=== PATIENT | male | born 1935 | race Caucasian/White ===

== ENCOUNTER 2024-09-26 12:49 | Inpatient (IN) ==
[2024-09-26 13:52] LABS: Hematocrit (blood only) 39.7 % (42.0-52.0); Hemoglobin 14.5 g/dl (14.0-18.0); Immature Granulocytes # (auto) 0.04 K/uL (0.01-0.20); Immature Granulocytes % (auto) 0.4 %; Mean Corpuscular Hemoglobin 32.2 pg (25.0-34.0); Mean Corpuscular Volume 88.2 fL (80.0-100.0); Platelet Count 248 K/uL (130-400); RDW Standard Deviation 39.3 fL (36.4-46.3); Red Blood Count 4.50 M/uL (4.70-6.10); White Blood Count 10.20 K/ul (4.8-10.8)
[2024-09-26 14:14] LABS: Alanine Aminotransferase 21 U/L (7-52); Albumin Globulin Ratio 1.3 (0.9-2); Alkaline Phosphatase 128 U/L (34-104); Anion Gap 8 (3-11); Bilirubin,Total 0.9 mg/dl (0.2-1.0); Blood Urea Nitrogen 33 mg/dl (6-23); Calcium 10.1 mg/dl (8.6-10.3); Carbon Dioxide 27 mmol/L (21-32); Chloride 93 mmol/L (98-107); Globulin 3.2 gm/dl (2.5-4.0); Glucose 477 mg/dl (70-99(Fasting)); Magnesium 1.5 mg/dl (1.7-2.4); Potassium 4.6 mmol/L (3.5-5.1); Sodium 128 mmol/L (136-145); Total Protein 7.3 gm/dl (6.0-8.3)
[2024-09-26 14:18] LABS: INR 1.0 (0.9-1.1); Prothrombin Time 10.5 Seconds (9.0-12.0)
[2024-09-26 14:26] LABS: Thyroid Stimulating Hormone 4.185 uIu/ml (0.300-4.500)
[2024-09-26 16:06] LABS: Base Excess VBG 1.0 mEq/L; HCO3 VBG 28 mmol/L; Oxygen Saturation VBG < 60.0 %; PCO2 VBG 53 mmHg (38-50); PO2 VBG < 20 mmHg; pH VBG 7.33 (7.36-7.41)
--- NOTE | 2024-09-26 16:08 | Emergency Department Note ---
Impression & Plan Recurrent falls, Rhabdomyolysis, Hyperglycemia due to type 2 diabetes mellitus, Elevated CK, Generalized weakness, Elevated serum creatinine, Elevated troponin, Ambulatory dysfunction ED Provider Note HISTORY OF PRESENT ILLNESS: Patient is an 89-year-old male presenting with generalized weakness. History is obtained from grandchildren. Patient's primary braider setter who is his child is currently on vacation and grandchildren came to check on the patient and his . Granddaughter reports that the patient was found on the ground today. Patient reports that he fell sometime this afternoon. He states that he keeps falling secondary to his legs giving out and him being so weak. He states he normally ambulates with a walker at baseline. He denies striking his head or loss of consciousness. He reported to his granddaughter that he has had occasional episodes of feeling lightheaded and dizzy prior to his falls. He denies any chest pain. Denies any nausea or vomiting. Denies any abdominal pain. He currently is complaining that "my tailbone hurts." Denies any numbness or tingling down his legs. ROS: as above PHYSICAL EXAM: Constitutional: Patient appears in no acute distress. HENT: Head: Normocephalic and atraumatic. Eyes: EOMI, PERRL Mouth/Throat: Mucous membranes moist. Neck: Trachea midline. Neck supple. No midline cervical spine tenderness to palpation. Cardiovascular: RRR, No murmurs, rubs or gallops. Intact distal pulses. Pulmonary/Chest: No respiratory distress. Breath sounds clear and equal bilaterally. No wheezes or rales Abdominal: Abdomen soft, no tenderness, rebound or guarding. Back: No midline spinal tenderness, no paraspinal tenderness, no CVA tenderness. Patient is able to straight leg raise bilaterally. Musculoskeletal: No edema, tenderness or deformity noted. Skin: Warm and dry. No rash, erythema, pallor or cyanosis Psychiatric: Appropriate mood and affect for situation. Neurological: Alert and keenly responsive. CN II-XII grossly intact, moving all extremities equally and fully. MDM: - Vitals signs showed hypertension and bradycardia. - History obtained via patient. History as above. - Chronic conditions affecting care: DM-2; CVA; HTN; CAD (s/p CABG); GERD - Differential diagnoses include, but are not limited to: Intracranial hemorrhage; CVA; UTI; deconditioning; pneumonia; viral syndrome; electrolyte abnormality; hypoglycemia - Order placed for continuous cardiac monitoring. At this time, monitor showed rate of 65 bpm with normal sinus rhythm, per my interpretation. - External medical records reviewed. - EKG image interpreted by myself showed normal sinus rhythm. Rate 63 bpm. QT 446. Noted to have a right bundle branch block. Noted to have some T wave inversions in leads I, aVL and lateral leads. - Laboratory workup interpreted by myself showed normal WBC; normal PT/INR; acute hyponatremia (Na 128 - likely pseudohyponatremia in setting of hyperglycemia); MARU (Cr 2.07); hypomagnesemia (Mg 1.5); elevated CK (584); elevated troponin (43.4); normal TSH - VBG showed slight acidosis (pH 7.33) - Xray of sacrum and coccyx negative for fracture - CT head wo contrast negative for acute intracranial pathology - UA ordered - Patient given 1L NS - Discussion was had with case finishing machine adjuster about patient's case and need for admission - Hospitalist consulted for admission - [facility] ASSESSMENT AND PLAN: Diagnosis: recurrent falls; hyperglycemia due to type 2 diabetes; rhabdomyolysis; elevated CK; elevated creatinine; elevated troponin; generalized weakness; ambulatory dysfunction Plan: admit Past Med/Surg History Problem List (Updated 09/26/24 @ 19:08 by Ally De La Garza MD) Ambulatory dysfunction (Acute) Elevated troponin (Acute) Elevated serum creatinine (Acute) Generalized weakness (Acute) Elevated CK (Acute) Electrolyte abnormality Hyperglycemia due to type 2 diabetes mellitus (Acute) Rhabdomyolysis (Acute) Recurrent falls (Acute) Medical History (Updated 09/26/24 @ 19:08 by Ally De La Garza MD) GERD (gastroesophageal reflux disease) Hypertension DM2 (diabetes mellitus, type 2) Acute CVA (cerebrovascular accident) Surgical History (Updated 09/26/24 @ 19:08 by Ally De La Garza MD) S/P CABG (coronary artery bypass graft) Social History Smoking Status: Former smoker Feels Safe at Home: Yes Allergies Allergies Allergy/AdvReac Type Severity Reaction Status Date / Time No Known Allergies Allergy Unverified 09/26/24 17:50 Home Meds Home Medications Medication Instructions Recorded Confirmed atenolol 25 mg tablet 25 mg PO DAILY 09/26/24 09/26/24 atorvastatin 80 mg tablet 80 mg PO HS 09/26/24 09/26/24 clopidogrel 75 mg tablet 75 mg PO DAILY 09/26/24 09/26/24 colesevelam 625 mg tablet 625 mg PO BID 09/26/24 09/26/24 ergocalciferol (vitamin D2) 1,250 1,250 mcg PO WK 09/26/24 09/26/24 mcg (50,000 unit) capsule (Vitamin D2) famotidine 20 mg tablet 20 mg PO BID 09/26/24 09/26/24 glipizide 5 mg tablet 2.5 mg PO BID 09/26/24 09/26/24 metformin 500 mg tablet 500 mg PO QID 09/26/24 09/26/24 omega-3s 300 hh-ovz-[id number]-other 1 cap PO DAILY 09/26/24 09/26/24 [id number] oil 1,000 mg capsule ([place]-3 Fish Oil) pantoprazole 40 mg tablet,delayed 40 mg PO DAILY PRN Heartburn 09/26/24 09/26/24 release semaglutide 14 mg tablet (Rybelsus) 14 mg PO DAILY 09/26/24 09/26/24 Results & Data (ED) Vital Signs Vital Signs - 24 hr 09/26/24 13:02 09/26/24 16:26 09/26/24 18:00 Temperature 36.1 C L Temperature Source Oral Pulse Rate 59 L Pulse Rate [Apical] 65 Respiratory Rate 19 16 16 Respiratory Effort / Characteristics Non-Labored Spontaneous Respiratory Depth Normal Blood Pressure 142/80 H Blood Pressure [Right Arm] 140/73 Blood Pressure Mean 100 Blood Pressure Mean [Right Arm] 95 Pulse Oximetry 91 97 92 Oxygen Delivery Method Room Air Room Air Nasal Cannula Sepsis Recent Fever Within 48 Hours No Sepsis New/Unexplained Change in Mental Status No Sepsis Action Taken by Nursing No Action Required Laboratory Data 09/26/24 13:23 09/26/24 13:23 Lab Results 09/26/24 09/26/24 09/26/24 Range/Units 13:23 15:54 18:22 WBC 10.20 (4.8-10.8) K/ul RBC 4.50 L (4.70-6.10) M/uL Hgb 14.5 (14.0-18.0) g/dl Hct 39.7 L (42.0-52.0) % MCV 88.2 (80.0-100.0) fL MCH 32.2 (25.0-34.0) pg MCHC 36.5 H (32.0-36.0) g/dL RDW Std Deviation 39.3 (36.4-46.3) fL RDW Coeff of Yahaira 12.3 (11.5-14.5) % Plt Count 248 (130-400) K/uL MPV 11.0 (9.4-12.4) fL Immature Gran % (Auto) 0.4 % Neut % (Auto) 68.9 % Lymph % (Auto) 20.4 % [place]morton % (Auto) 7.2 % Eos % (Auto) 2.5 % Baso % (Auto) 0.6 % Neut # (Auto) 7.04 H (1.40-6.50) K/uL Lymph # (Auto) 2.08 (1.20-3.40) K/uL [place]on # (Auto) 0.73 H (0.11-0.59) K/uL Eos # (Auto) 0.25 (0.00-0.50) K/uL Baso # (Auto) 0.06 (0.00-0.20) K/uL Immature Gran # (Auto) 0.04 (0.01-0.20) K/uL PT 10.5 (9.0-12.0) Seconds INR 1.0 (0.9-1.1) VBG pH 7.33 L (7.36-7.41) VBG pCO2 53 H (38-50) mmHg VBG pO2 < 20 mmHg VBG HCO3 28 mmol/L VBG O2 Saturation < 60.0 % VBG Base Excess 1.0 mEq/L Sodium 128 L (136-145) mmol/L Potassium 4.6 (3.5-5.1) mmol/L Chloride 93 L (98-107) mmol/L Carbon Dioxide 27 (21-32) mmol/L Anion Gap 8 (3-11) BUN 33 H (6-23) mg/dl Creatinine 2.07 H (0.6-1.4) mg/dl Est Cr Clr Drug Dosing Not Reportable eGFR 30.24 BUN/Creatinine Ratio 15.9 (10-20) Glucose 477 H* (70-99(Fasting)) mg/dl POC Glucose 274 H (70-99) mg/dl Calcium 10.1 (8.6-10.3) mg/dl Magnesium 1.5 L (1.7-2.4) mg/dl Total Bilirubin 0.9 (0.2-1.0) mg/dl AST 37 (13-39) U/L ALT 21 (7-52) U/L Alkaline Phosphatase 128 H (34-104) U/L Total Creatine Kinase 584 H (30-223) U/L Troponin I High Sens 43.4 H 40.7 H (0-20) pg/ml Total Protein 7.3 (6.0-8.3) gm/dl Albumin 4.1 (3.4-5.0) gm/dl Globulin 3.2 (2.5-4.0) gm/dl Albumin/Globulin Ratio 1.3 (0.9-2) TSH 4.185 (0.300-4.500) uIu/ml Administered Medications Discontinued Medications Sodium Chloride (Nss) 1,000 mls @ 999 mls/hr IV .Q1H1M ONE Stop: 09/26/24 17:27 Last Admin: 09/26/24 16:59 Dose: 999 mls/hr Documented By: SHARA Imaging Data Radiologist's Impression: Head CT 09/26/24 15:00 Clinical History: Dizziness Technique: Axial computed tomography images were obtained of the brain without intravenous contrast. Findings: There is diffuse cerebral atrophy, within expected limits for the patient's age. Areas of decreased attenuation are seen within the periventricular white matter, likely representing chronic small vessel ischemic disease. There is an old infarct of the right caudate nucleus. There is no definite sign of acute infarction. No intracranial hemorrhage is evident. No definite mass lesion is seen on this noncontrast examination. There is no midline shift or other form of herniation. No hydrocephalus is seen. No fracture is identified. The orbits and the visualized paranasal sinuses appear unremarkable. The mastoid air cells appear clear. Impression: 1. Cerebral atrophy, old basal ganglia infarct, and chronic small vessel ischemic disease 2. No definite acute pathology Electronically signed by Samuel Calix 09-26-2024 5:17 PM Sacrum and Coccyx X-Ray 09/26/24 16:00 Clinical History: Pain after fall 3 views of the sacrum and coccyx are submitted for review. Findings: No fracture or dislocation is seen. No significant arthritic changes are noted. No other osseous abnormality is identified. There are no radiopaque foreign bodies. Impression: Unremarkable radiographs of the sacrum and coccyx Electronically signed by Samuel Calix 09-26-2024 5:16 PM Discharge Plan Visit Data Chief Complaint: Fall Stated Complaint: MULTIPLE FALLS, CONFUSION ED Provider: Ally De La Garza Discharge Problem: Recurrent falls, Rhabdomyolysis, Hyperglycemia due to type 2 diabetes mellitus, Elevated CK, Generalized weakness, Elevated serum creatinine, Elevated troponin, Ambulatory dysfunction Condition: Fair Forms Stand Alone Forms: My [facility] [employer] Prescriptions Prescriptions: No Action atenolol 25 mg tablet 25 mg PO DAILY famotidine 20 mg tablet 20 mg PO BID glipizide 5 mg tablet 2.5 mg PO BID Rybelsus 14 mg tablet 14 mg PO DAILY atorvastatin 80 mg tablet 80 mg PO HS clopidogrel 75 mg tablet 75 mg PO DAILY pantoprazole 40 mg tablet,delayed release (DR/EC) 40 mg PO DAILY PRN (Reason: Heartburn) ergocalciferol (vitamin D2) [Vitamin D2] 1,250 mcg (50,000 unit) capsule 1,250 mcg PO WK metformin 500 mg tablet 500 mg PO QID colesevelam 625 mg Tablet 625 mg PO BID [place]-3 Fish Oil 300-1,000 mg Capsule 1 cap PO DAILY Referrals Referrals: Edvin Frost [Primary Care Provider] -
[2024-09-26 16:34] LABS: Creatine Kinase 584 U/L (30-223)
--- NOTE | 2024-09-26 16:40 | History & Physical Report ---
Date of Service September 26, 2024 Assessment & Plan (1) Recurrent falls: (2) Rhabdomyolysis: (3) Hyperglycemia due to type 2 diabetes mellitus: (4) Electrolyte abnormality: Ling Vanessa is a pleasant 89-year-old man with past medical history of stroke in 2023, hypertension, open heart surgery in 2000, GERD, vitamin D deficiency. He was found down on the ground by his grandson and reportedly has had multiple ground- level falls the past few days due to "weak legs giving out." No head strike, LOC, injuries. He was admitted for PT/OT evaluations, correction of his acute hyperglycemia, and repletion of electrolyte abnormalities. #Recurrent falls | Mild rhabdo - falls sound biomechanical in nature/secondary to generalized weakness. Mild rhabdo likely secondary to being on the ground for unknown period of time but suspect at least a few hours - CK elevated at 584. UA pending. No myalgias, tachycardia, GI symptoms, fever, malaise - PT/OT consulted - Fall precautions - S/p 1 L NSS bolus. Continue with NSS at maintenance rate of 115 cc/hr x 1 bag #Acute hyperglycemia | T2DM - blood sugar on arrival 447. Outpatient regimen of metformin 500 mg 4 times daily, glipizide 2.5 mg twice daily, and Rybelsus 14 mg daily. He ran out of his Rybelsus prescription and did not take it for a few days [employer] - S/p 1 NSS bolus with repeat POC BS 274 - Insulin basal/bolus with Lantus 10 u BID, CF 30, CR 10 - A1c added to AM labs #Electrolyte abnormality - Mild hypomagnesemia with mag 1.5 - BMP sodium 128 but corrected sodium for hyperglycemia WNL at 137 - Replete with 1 g IV mag - Repeat BMP, mag with AM labs #Renal insufficiency unknown baseline creatinine. BUN/creatinine 33/2.07 respectively, consistent with dehydration - Continue IV fluids as above. Anticipate will improve with fluids. - Trend BMP with a.m. labs #History of stroke, ontinue Plavix 75 mg daily, aspirin 81 mg daily, atorvastatin 80 mg daily #Hypertensioncontinue atenolol 25 mg daily #GERDcontinue Protonix 40 mg daily, Pepcid 20 mg daily VTE PPx: Heparin Dispo: med/surg. If possible to room with , that would be preferred. Family updated at bedside on admission History of Present Illness Chief Complaint: Fall, generalized weakness Primary Care Provider: Edvin Vanessa is a pleasant 89-year-old man with past medical history of stroke in 2023, open heart surgery in 2000, GERD, vitamin D deficiency. He presented from home with repeated falls and generalized weakness. At the time of my exam, the patient was lying in bed in no acute distress. Obtained most of the history via his grandchildren who are present at bedside. Khang states his mother is the primary caregiver for Otf and his who is in the other bed in the ED room. Patient's daughter is currently on vacation and neighbors have been checking on Otf and his intermittently. Khang was notified yesterday that Otf had a couple falls. Khang and his traveled from [place] to [place] today to check on Otf. When they arrived to their home, they found the patient on the ground. Otf denies any injuries from his falls. Denies head strike or loss of consciousness. He reports "my legs are weak and gave out. I only landed on my butt." Otf does use a walker at baseline. Khang reports that Otf ran out of his Rybelsus medication a few days ago. They picked up this prescription today and he took his dose. Otherwise, khang reports his pill packs showed that he has been taking his other medications appropriately. Patient agrees that he is taking his medications as prescribed. Vitals on admission are stable. Labs on admission are significant for sodium 128 (corrected to 137), BUN/creatinine 33/2.07, glucose 477, mag 1.5, CK 584, troponin 43.4 down trended to 40.7. No leukocytosis, no anemia, TSH WNL. Head CT on admission reveals cerebral atrophy, old basal ganglia infarct, chronic small vessel ischemic disease but no definite acute pathology. Sacrum and coccyx x-ray with no fracture, dislocation, or other osseous abnormalities. We discussed code status, patient wishes to be a full code. Allergies Allergy/AdvReac Type Severity Reaction Status Date / Time No Known Allergies Allergy Unverified 09/26/24 17:50 Home Medications Medication Instructions Recorded Confirmed Type atenolol 25 mg tablet 25 mg PO DAILY 09/26/24 09/26/24 History atorvastatin 80 mg tablet 80 mg PO HS 09/26/24 09/26/24 History clopidogrel 75 mg tablet 75 mg PO DAILY 09/26/24 09/26/24 History colesevelam 625 mg tablet 625 mg PO BID 09/26/24 09/26/24 History ergocalciferol (vitamin D2) 1,250 1,250 mcg PO WK 09/26/24 09/26/24 History mcg (50,000 unit) capsule (Vitamin D2) famotidine 20 mg tablet 20 mg PO BID 09/26/24 09/26/24 History glipizide 5 mg tablet 2.5 mg PO BID 09/26/24 09/26/24 History metformin 500 mg tablet 500 mg PO QID 09/26/24 09/26/24 History omega-3s 300 zr-uba-bim-other 1 cap PO DAILY 09/26/24 09/26/24 History [id number]-[id number] oil 1,000 mg capsule ([place]-3 Fish Oil) pantoprazole 40 mg tablet,delayed 40 mg PO DAILY PRN Heartburn 09/26/24 09/26/24 History release semaglutide 14 mg tablet (Rybelsus) 14 mg PO DAILY 09/26/24 09/26/24 History Past Med/Surg History Problem List (Updated 09/26/24 @ 19:08 by Ally De La Garza MD) Ambulatory dysfunction (Acute) Elevated troponin (Acute) Elevated serum creatinine (Acute) Generalized weakness (Acute) Elevated CK (Acute) Electrolyte abnormality Hyperglycemia due to type 2 diabetes mellitus (Acute) Rhabdomyolysis (Acute) Recurrent falls (Acute) Medical History (Updated 09/26/24 @ 19:08 by Ally De La Garza MD) GERD (gastroesophageal reflux disease) Hypertension DM2 (diabetes mellitus, type 2) Acute CVA (cerebrovascular accident) Surgical History (Updated 09/26/24 @ 19:08 by Ally De La Garza MD) S/P CABG (coronary artery bypass graft) Social History Smoking Status: Former smoker Feels Safe at Home: Yes Review of Systems Review of Systems: All systems reviewed & are unremarkable except as noted in HPI & below Physical Exam Physical Exam: General: No acute distress, nondiaphoretic, well-developed, well-nourished. HEENT: Dry mucous membranes. PERRLA. Skin: Warm, dry. No rashes or peripheral edema noted. Cardiac: Regular rate and rhythm without murmurs gallops or rubs. Pulm: Clear to auscultation bilaterally without wheezes, rales or rhonchi. Normal respiratory effort. 97% on room air. Abdominal: Soft, nontender, nondistended. No masses or organomegaly. No guarding or rebound tenderness. Bowel sounds present. Neuro: A&O x3. No focal neurological deficits. Results & Data Results & Data Vital Signs (Past 12 Hours) Vital Signs Temp Pulse Resp BP BP Pulse Ox O2 Del Method 09/26/24 16:26 16 140/73 97 Room Air 09/26/24 13:02 97.0 F L 59 L 19 142/80 H 91 Room Air Laboratory Results Reviewed CBC with differential Reviewed coags Reviewed VBG Reviewed CMP, chemistries Diagnostic Findings Reviewed head CT Reviewed sacrum and coccyx x-ray Reviewed EKG Head CT 09/26/24 15:00 Clinical History: Dizziness Technique: Axial computed tomography images were obtained of the brain without intravenous contrast. Findings: There is diffuse cerebral atrophy, within expected limits for the patient's age. Areas of decreased attenuation are seen within the periventricular white matter, likely representing chronic small vessel ischemic disease. There is an old infarct of the right caudate nucleus. There is no definite sign of acute infarction. No intracranial hemorrhage is evident. No definite mass lesion is seen on this noncontrast examination. There is no midline shift or other form of herniation. No hydrocephalus is seen. No fracture is identified. The orbits and the visualized paranasal sinuses appear unremarkable. The mastoid air cells appear clear. Impression: 1. Cerebral atrophy, old basal ganglia infarct, and chronic small vessel ischemic disease 2. No definite acute pathology Electronically signed by Samuel Calix 09-26-2024 5:17 PM Sacrum and Coccyx X-Ray 09/26/24 16:00 Clinical History: Pain after fall 3 views of the sacrum and coccyx are submitted for review. Findings: No fracture or dislocation is seen. No significant arthritic changes are noted. No other osseous abnormality is identified. There are no radiopaque foreign bodies. Impression: Unremarkable radiographs of the sacrum and coccyx Electronically signed by Samuel Calix 09-26-2024 5:16 PM Supervising Physician Co-Signing Physician Notes Patient seen and examined, chart reviewed, case discussed with Maryann Bui PA-C and I agree with the assessment and plan as above except as otherwise noted Labs and images reviewed 89-year-old male presents with hyperglycemia, volume contraction, recurrent falls, rhabdo, and weakness. Suspected due to volume contraction. BSG rapidly improving following fluids. Follow renal function daily. No head strike/loss of consciousness. Reports he is so tired and weak that he fell to the floor and hit his butt, did not hit his head. No focal weakness. CThead without acute findings. PT/OT pending. Agree with above PG Care Time/CCT Total # of Minutes Spent Total Time Spent with Patient: Total time spent is greater than 50% in coordination of care (as documented) at patient's floor/unit and/or counseling patient: Coding Level of Care Code 70435 INT INP/OBS CARE 3/75MIN Diagnoses Recurrent falls R29.6 Rhabdomyolysis M62.82 Hyperglycemia due to type 2 diabetes mellitus E11.65 Electrolyte abnormality E87.8
[2024-09-26] MEDS: SODIUM CHLORIDE 0.9% 1,000 ML IV ONE (16:59)
--- NOTE | 2024-09-26 17:16 | XRay Report ---
Clinical History: Pain after fall 3 views of the sacrum and coccyx are submitted for review. Findings: No fracture or dislocation is seen. No significant arthritic changes are noted. No other osseous abnormality is identified. There are no radiopaque foreign bodies. Impression: Unremarkable radiographs of the sacrum and coccyx Electronically signed by Samuel Calix 09-26-2024 5:16 PM
--- NOTE | 2024-09-26 17:17 | CT Scan Report ---
Clinical History: Dizziness Technique: Axial computed tomography images were obtained of the brain without intravenous contrast. Findings: There is diffuse cerebral atrophy, within expected limits for the patient's age. Areas of decreased attenuation are seen within the periventricular white matter, likely representing chronic small vessel ischemic disease. There is an old infarct of the right caudate nucleus. There is no definite sign of acute infarction. No intracranial hemorrhage is evident. No definite mass lesion is seen on this noncontrast examination. There is no midline shift or other form of herniation. No hydrocephalus is seen. No fracture is identified. The orbits and the visualized paranasal sinuses appear unremarkable. The mastoid air cells appear clear. Impression: 1. Cerebral atrophy, old basal ganglia infarct, and chronic small vessel ischemic disease 2. No definite acute pathology Electronically signed by Samuel Calix 09-26-2024 5:17 PM
[2024-09-26] MEDS ORDERED: GLUCAGON FOR INJ 1 MG VIAL SQ PRN (18:27)
[2024-09-26] MEDS ORDERED: DEXTROSE 50% 50 ML SYRINGE IV PRN (18:27)
[2024-09-26] MEDS ORDERED: GLUCOSE 40% GEL 15 GM TUBE PO PRN (18:27)
[2024-09-26] MEDS ORDERED: GLUCOSE 10 TAB/TUBE PO PRN (18:27)
[2024-09-26] MEDS: SODIUM CHLORIDE 0.9% 1,000 ML IV SCH (19:30)
[2024-09-26] MEDS ORDERED: MELATONIN 3 MG TAB PO PRN (19:52)
[2024-09-26] MEDS: INSULIN ASPART PER UNIT CHARGE SC SCH (20:26)
[2024-09-26] MEDS: MAGNESIUM SULFATE / D5W 1 GM/100 ML BAG IV ONE (20:28)
[2024-09-26 21:53] LABS: Appearance Urine Clear (Clear); Bacteria Urine Automated None Seen (None Seen); Cast Urine Automated 0-2 /lpf (0-2); Epithelial Cell Urine Auto 0-2 /hpf (0-2); Glucose Urine UA 3+ (Negative); RBC Urine Automated 0-2 /hpf (0-2); WBC Urine Automated 21-50 /hpf (0-5)
[2024-09-26] MEDS: LANTUS PER UNIT CHARGE SQ SCH (22:06)
[2024-09-27 06:31] LABS: Hematocrit (blood only) 36.9 % (42.0-52.0); Hemoglobin 13.2 g/dl (14.0-18.0); Mean Corpuscular Hemoglobin 31.8 pg (25.0-34.0); Mean Corpuscular Volume 88.9 fL (80.0-100.0); Platelet Count 221 K/uL (130-400); RDW Standard Deviation 39.8 fL (36.4-46.3); Red Blood Count 4.15 M/uL (4.70-6.10); White Blood Count 9.18 K/ul (4.8-10.8)
[2024-09-27 07:01] LABS: Alanine Aminotransferase 16.0 U/L (7-52); Albumin Globulin Ratio 1.5 (0.9-2); Alkaline Phosphatase 85.0 U/L (34-104); Anion Gap 7.0 (3-11); Bilirubin,Total 0.7 mg/dl (0.2-1.0); Blood Urea Nitrogen 26.0 mg/dl (6-23); Calcium 9.0 mg/dl (8.6-10.3); Carbon Dioxide 27.0 mmol/L (21-32); Chloride 104.0 mmol/L (98-107); Creatinine Clr Calc Pharmacy 29.1 ml/min; Globulin 2.4 gm/dl (2.5-4.0); Glucose 117.0 mg/dl (70-99(Fasting)); Magnesium 1.5 mg/dl (1.7-2.4); Potassium 4.4 mmol/L (3.5-5.1); Sodium 138.0 mmol/L (136-145); Total Protein 5.9 gm/dl (6.0-8.3)
[2024-09-27 07:51] LABS: Hemoglobin A1C 13.4 % (4.5-5.6)
[2024-09-27] MEDS: HEPARIN SOD 5,000 UNIT/0.5 ML VIAL SQ SCH (08:52)
[2024-09-27] MEDS: ATORVASTATIN 40 MG TAB PO SCH (08:54)
[2024-09-27] MEDS: CLOPIDOGREL BISULFATE 75 MG TAB PO SCH (08:54)
[2024-09-27] MEDS: ATENOLOL 25 MG TABLET PO SCH (08:54)
[2024-09-27] MEDS: ASPIRIN 81 MG ECTAB PO SCH (08:54)
[2024-09-27] MEDS: CHOLECALCIFEROL 125 MCG (5,000 UNITS) TAB PO SCH (08:54)
[2024-09-27] MEDS: FAMOTIDINE 20 MG TAB PO SCH (09:01)
[2024-09-27 10:25] LABS: Creatine Kinase 259.0 U/L (30-223)
[2024-09-27] MEDS: ALUMINUM/MAGNESIUM SUSP 30 ML UDC PO PRN (11:20)
[2024-09-27] MEDS: CALCIUM CARBONATE 500 MG CHEWABLE TAB PO PRN (12:29)
--- NOTE | 2024-09-27 16:20 | Hospitalist Progress Note ---
Date of Service September 27, 2024 Assessment & Plan (1) Recurrent falls: (2) Rhabdomyolysis: (3) Hyperglycemia due to type 2 diabetes mellitus: (4) Electrolyte abnormality: Ling Vansesa is a pleasant 89-year-old man with past medical history of stroke in 2023, hypertension, open heart surgery in 2000, GERD, vitamin D deficiency. He was found down on the ground by his grandson and reportedly has had multiple ground- level falls the past few days due to "weak legs giving out." No head strike, LOC, injuries. He was admitted for PT/OT evaluations, correction of his acute hyperglycemia, and repletion of electrolyte abnormalities. #Recurrent falls | Mild rhabdo - falls sound biomechanical in nature/secondary to generalized weakness. Mild rhabdo likely secondary to being on the ground for unknown period of time but suspect at least a few hours - CK elevated at 584, down trended to 259. UA negative. No myalgias, tachycardia, GI symptoms, fever, malaise - PT/OT consulted - Fall precautions - S/p 2 L NSS IV fluid #Acute hyperglycemia | T2DM - blood sugar on arrival 447. Outpatient regimen of metformin 500 mg 4 times daily, glipizide 2.5 mg twice daily, and Rybelsus 14 mg daily. 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 Blood sugar on the labs today 09/27 much improved at 117 - Insulin basal/bolus with Lantus 10 u BID, CF 30, CR 10 - A1c significantly elevated at 13.4%. Will monitor insulin requirements here, but anticipate discharging on home regimen + 3-5 units basal insulin and establishing care with endocrinology within 2 weeks. Will provide education with family about 3 times daily blood sugar checks and glucagon pen for hypoglycemia emergencies #Electrolyte abnormality - Mild hypomagnesemia with mag 1.5, repleted with 1 g IV mag on admission. Mag remains mildly low at 1.5, will replete with additional 1 g IV mag - Repeat BMP, mag with AM labs #Renal insufficiency unknown baseline creatinine. BUN/creatinine 33/2.07 respectively, consistent with dehydration - S/p 2 L NSS IV fluid. Improvement in BUN/creatinine to 26/1.64 respectively - Trend BMP with a.m. labs #History of stroke, ontinue Plavix 75 mg daily, aspirin 81 mg daily, atorvastatin 80 mg daily #Hypertensioncontinue atenolol 25 mg daily #GERDcontinue Protonix 40 mg daily, Pepcid 20 mg daily VTE PPx: Heparin Dispo: Pending PT/OT evaluations but would anticipate rehab placement Family updated at bedside Repleted magnesium Admission and Anticipated Discharge Date Admission Date: September 26, 2024 Subjective Patient seen and evaluated bedside. He is happy because he was able to visit with his downstairs earlier after lunch. He denies any acute complaints or concerns at this time. We had a brief discussion regarding his diabetic care/regimen. I met with his grandson and his as well as the patient's to provide them all an update. We had a thorough discussion regarding his A1c and necessary changes to his diabetic regimen. All questions/concerns were addressed. No additional complaints or concerns at this time Physical Exam Physical Exam: General: No acute distress, nondiaphoretic, well-developed, well-nourished. Skin: Warm, dry. No rashes or peripheral edema noted. Cardiac: Regular rate and rhythm without murmurs gallops or rubs. Pulm: Clear to auscultation bilaterally without wheezes, rales or rhonchi. Normal respiratory effort. 98% on room air. Abdominal: Soft, nontender, nondistended. No masses or organomegaly. No guarding or rebound tenderness. Bowel sounds present. Neuro: A&O x3. No focal neurological deficits. Results & Data Results & Data Vital Signs (Past 12 Hours) Vital Signs Temp Pulse Pulse Resp BP Pulse Ox O2 Del Method 09/27/24 15:11 97.2 F L 76 18 147/64 H 98 Room Air 09/27/24 11:13 97.9 F 69 18 117/70 96 Room Air 09/27/24 07:31 97.5 F L 68 18 149/79 H 96 Room Air Laboratory Results Reviewed CBC Reviewed CMP Reviewed UA PG Care Time/CCT Total # of Minutes Spent Total Time Spent with Patient: Total time spent is greater than 50% in coordination of care (as documented) at patient's floor/unit and/or counseling patient: Coding Level of Care Code 94779 SUB INP/OBS CARE 3/50MIN Diagnoses Recurrent falls R29.6 Rhabdomyolysis M62.82 Hyperglycemia due to type 2 diabetes mellitus E11.65 Electrolyte abnormality E87.8
[2024-09-27] MEDS: MAGNESIUM SULFATE / D5W 1 GM/100 ML BAG IV ONE (16:55)
--- NOTE | 2024-09-28 05:52 | Electrocardiogram Report ---
Test Reason : Blood Pressure : */* mmHG Vent. Rate : 63 BPM Atrial Rate : 63 BPM P-R Int : 136 ms QRS Dur : 124 ms QT Int : 446 ms P-R-T Axes : 3 30 104 degrees QTcB Int : 456 ms Normal sinus rhythm Right bundle branch block T wave abnormality, consider lateral ischemia Abnormal ECG No previous ECGs available Confirmed by Ruy Contreras ([id number]) on 09/28/2024 5:51:35 AM Referred By: Confirmed By: Ruy Contreras
[2024-09-28] MEDS: CARBOHYDRATES FOR HYPOGLYCEMIA PO PRN (07:49)
[2024-09-28 08:04] LABS: Anion Gap 4.0 (3-11); Blood Urea Nitrogen 21.0 mg/dl (6-23); Calcium 8.3 mg/dl (8.6-10.3); Carbon Dioxide 26.0 mmol/L (21-32); Chloride 109.0 mmol/L (98-107); Creatinine Clr Calc Pharmacy 30.4 ml/min; Glucose 65.0 mg/dl (70-99(Fasting)); Potassium 4.2 mmol/L (3.5-5.1); Sodium 139.0 mmol/L (136-145)
[2024-09-28] MEDS: COUGH DROP (SUGAR FREE) LOZ 24 LOZ/1 BOX BUCCAL PRN (08:10)
--- NOTE | 2024-09-28 10:46 | Hospitalist Progress Note ---
Date of Service September 28, 2024 Assessment & Plan (1) Recurrent falls: (2) Rhabdomyolysis: (3) Hyperglycemia due to type 2 diabetes mellitus: (4) Electrolyte abnormality: Ling Vanessa is a pleasant 89-year-old man with past medical history of stroke in 2023, hypertension, open heart surgery in 2000, GERD, vitamin D deficiency. He was found down on the ground by his grandson and reportedly has had multiple ground- level falls the past few days due to "weak legs giving out." No head strike, LOC, injuries. He was admitted for PT/OT evaluations, correction of his acute hyperglycemia, and repletion of electrolyte abnormalities. #Recurrent falls | Mild rhabdo - falls sound biomechanical in nature/secondary to generalized weakness. Mild rhabdo likely secondary to being on the ground for unknown period of time but suspect at least a few hours. S/p 2 L NSS IV fluid, no further IV fluids needed - CK elevated at 584, down trended to 259. UA negative. No myalgias, tachycardia, GI symptoms, fever, malaise - PT/OT consulted - Fall precautions - Continue to encourage oral fluids #Acute hyperglycemia | T2DM - blood sugar on arrival 447. Outpatient regimen of metformin 500 mg 4 times daily, glipizide 2.5 mg twice daily, and Rybelsus 14 mg daily. 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 S/p 1 NSS bolus with repeat POC BS 274 on admission - Episodes of hypoglycemia this morning and again this afternoon 09/28. Likely quite sensitive to insulin adjustments especially because he was not taking his metformin as prescribed (supposed to take 500 mg 4x daily, but only taking once daily) - Will decrease Lantus to 10 units daily (was on twice daily), increase CF to 50, and no CR - A1c significantly elevated at 13.4%. Will monitor insulin requirements here to establish discharge regimen. Recommend establishing care with endocrinology within 2 weeks. Will provide education with family about 3 times daily blood sugar checks and glucagon pen for hypoglycemia emergencies #Electrolyte abnormality - Mild hypomagnesemia with mag 1.5, s/p 1 g mag IV x 2, mag 1.6 now. Will start oral mag supplement - Repeat BMP, mag with AM labs #Renal insufficiency unknown baseline creatinine. BUN/creatinine 33/2.07 respectively on admission, consistent with dehydration - S/p 2 L NSS IV fluid. Improvement in BUN/creatinine to 21/1.57 respectively - Trend BMP with a.m. labs #History of stroke, ontinue Plavix 75 mg daily, aspirin 81 mg daily, atorvastatin 80 mg daily #Hypertensioncontinue atenolol 25 mg daily #GERDcontinue Protonix 40 mg daily, Pepcid 20 mg daily Dispo: Anticipate discharge to [facility] tomorrow, 09/29 Started oral mag supplement Discussed discharge planning with case management Discussed insulin regimen with pharmacy Adjusted SSI Updated daughter at bedside Admission and Anticipated Discharge Date Admission Date: September 26, 2024 Subjective Patient seen and evaluated at bedside. He reports feeling well, his only complaint is that he misses his . I told him that nursing staff will take him down stairs later today to visit with her again. This provided him some relief. Therapy was not able tot evaluate him yesterday due to him being upset about missing his . Hopeful for initial evaluation some time today. He denies any other needs or concerns at this time. Returned to bedside in the afternoon after hypoglycemic episode; daughter present at bedside. Otf reports he "feels funny." Provided more orange juice and reports he feels better. Discussed diabetic regimen plan with patient, daughter, nursing staff. Physical Exam Physical Exam: General: No acute distress, nondiaphoretic, well-developed, well-nourished. Skin: Warm, dry. No rashes or peripheral edema noted. Cardiac: Well-perfused. Rate in 60s. Pulm: Normal respiratory effort. 94% on room air. Neuro: A&O x3. No focal neurological deficits. Results & Data Results & Data Vital Signs (Past 12 Hours) Vital Signs Temp Pulse Resp BP Pulse Ox O2 Del Method 09/28/24 08:18 97.5 F L 66 16 124/64 94 Room Air 09/28/24 08:15 97.2 F L 66 20 167/65 H 95 Room Air 09/27/24 23:10 98.1 F 86 15 127/69 93 Room Air Laboratory Results Reviewed BMP, mag PG Care Time/CCT Total # of Minutes Spent Total Time Spent with Patient: Total time spent is greater than 50% in coordination of care (as documented) at patient's floor/unit and/or counseling patient: Coding Level of Care Code 10778 SUB INP/OBS CARE 3/50MIN Diagnoses Recurrent falls R29.6 Rhabdomyolysis M62.82 Hyperglycemia due to type 2 diabetes mellitus E11.65 Electrolyte abnormality E87.8
[2024-09-28] MEDS: ONDANSETRON INJ 2 MG/ML 2 ML VIAL IV PRN (12:41)
[2024-09-28] MEDS: MAGNESIUM OXIDE 400 MG TAB PO SCH (12:51)
[2024-09-28] MEDS ORDERED: PHARMACY GLYCEMIC MGMT CONSULT PRN (17:05)
[2024-09-28] MEDS: D5W AND LACTATED RINGERS 1,000 ML IV SCH (18:04)
[2024-09-28] MEDS: POLYETHYLENE (MIRALAX) 17 GM PACK PO PRN (18:32)
[2024-09-29 07:09] LABS: Anion Gap 6.0 (3-11); Blood Urea Nitrogen 17.0 mg/dl (6-23); Calcium 8.1 mg/dl (8.6-10.3); Carbon Dioxide 25.0 mmol/L (21-32); Chloride 108.0 mmol/L (98-107); Creatinine Clr Calc Pharmacy 31.0 ml/min; Glucose 96.0 mg/dl (70-99(Fasting)); Magnesium 1.6 mg/dl (1.7-2.4); Potassium 4.6 mmol/L (3.5-5.1); Sodium 139.0 mmol/L (136-145)
[2024-09-29] MEDS ORDERED: LANTUS PER UNIT CHARGE SQ SCH (09:00)
--- NOTE | 2024-09-29 11:19 | Hospitalist Progress Note ---
Date of Service September 29, 2024 Assessment & Plan (1) Recurrent falls: (2) Rhabdomyolysis: (3) Hyperglycemia due to type 2 diabetes mellitus: (4) Electrolyte abnormality: Ling Vanessa is a pleasant 89-year-old man with past medical history of stroke in 2023, hypertension, open heart surgery in 2000, GERD, vitamin D deficiency. He was found down on the ground by his grandson and reportedly has had multiple ground- level falls the past few days due to "weak legs giving out." No head strike, LOC, injuries. He was admitted for PT/OT evaluations, correction of his acute hyperglycemia, and repletion of electrolyte abnormalities. #Recurrent falls | Mild rhabdo - falls sound biomechanical in nature/secondary to generalized weakness. Mild rhabdo likely secondary to being on the ground for unknown period of time but suspect at least a few hours. S/p 2 L NSS IV fluid, no further IV fluids needed - CK elevated at 584, down trended to 259. UA negative. No myalgias, tachycardia, GI symptoms, fever, malaise - PT/OT consulted, plan to discharge to [facility] when bed availability allows - Fall precautions - Continue to encourage oral fluids - Complaining of right arm pain, pain elicited on passive ROM of right shoulder. Right shoulder x-ray with high riding humeral head, favoring underlying rotator cuff pathology. Defer NSAIDs due to renal insufficiency and borderline creatinine clearance of 31. Recommend sports medicine referral on discharge, continued PT/OT, and if not improved in 6 weeks recommend MRI #Acute hyperglycemia | T2DM - blood sugar on arrival 447. Outpatient regimen of metformin 500 mg 4 times daily, glipizide 2.5 mg twice daily, and Rybelsus 14 mg daily. 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 S/p 1 NSS bolus with repeat POC BS 274 on admission. - A1c significantly elevated at 13.4%. Suspect this is due to medication non- compliance, not resistant diabetes. He has been quite sensitive to insulin while here, with episodes of hypoglycemia on 09/28 requiring 1 L D5W and LR with improvement and adjustments made to Lantus/SSI - Lantus further decreased to 5 units daily. CF 40, CR 15. Pharmacy glycemic consult in place and managing now - Recommend discharging to [facility] on outpatient regimen so they can monitor his BS closely and make adjustments as needed prior to sending him home - Educated family on 3 times daily blood sugar checks and glucagon pen for hypoglycemia emergencies #Electrolyte abnormality - Mild hypomagnesemia with mag 1.5, s/p 1 g mag IV x 2, mag 1.6 now. Started/continued on oral mag supplement - Repeat BMP, mag with AM labs #Renal insufficiency | Likely MARU due to dehydration, rhabdomyolysis unknown baseline creatinine. BUN/creatinine 33/2.07 respectively on admission, consistent with dehydration - S/p 2 L NSS IV fluid - BUN/Cr continues to improve daily, currently 17/1.54 respectively 09/29 - Trend BMP with a.m. labs #History of stroke, ontinue Plavix 75 mg daily, aspirin 81 mg daily, atorvastatin 80 mg daily #Hypertensioncontinue atenolol 25 mg daily #GERDcontinue Protonix 40 mg daily, Pepcid 20 mg daily VTE PPx: Heparin Dispo: [facility]. Unfortunately[facility]. Anticipate [facility] tomorrow, 09/30. Updated daughter via phone call this morning and in person at bedside this afternoon Discussed discharge planning with case management Ordered right shoulder x-ray Admission and Anticipated Discharge Date Admission Date: September 26, 2024 Subjective Patient seen and evaluated at bedside. He reports feeling better today. We discussed the adjustments in his diabetic plan. Unfortunately, [facility] today so discharge will be postponed until likely tomorrow, 09/30. He denies any complaints or concerns at this time aside from missing his . Returned to bedside in afternoon when daughter was present. Otf continues to have right arm pain, first started complaining of it yesterday afternoon. He had pain on ROM of his right shoulder; will check shoulder x-ray. Neuro exam completely normal. He is compliant with his Plavix and aspirin. Vitals and BS normal. Updated daughter and granddaughter at bedside with x-ray results and plan moving forward. Physical Exam Physical Exam: General: No acute distress, nondiaphoretic, well-developed, well-nourished. Skin: Warm, dry. No rashes or peripheral edema noted. Cardiac: Regular rate and rhythm without murmurs gallops or rubs. Pulm: Clear to auscultation bilaterally without wheezes, rales or rhonchi. Normal respiratory effort. 98% on room air. Abdominal: Soft, nontender, nondistended. Bowel sounds present. Neuro: A&O x3. No focal neurological deficits. Results & Data Results & Data Vital Signs (Past 12 Hours) Vital Signs Temp Pulse Resp BP Pulse Ox O2 Del Method 09/29/24 07:52 97.9 F 66 18 144/68 H 98 Room Air Laboratory Results Reviewed BMP, mag Diagnostic Findings Reviewed right shoulder x-ray PG Care Time/CCT Total # of Minutes Spent Total Time Spent with Patient: Total time spent is greater than 50% in coordination of care (as documented) at patient's floor/unit and/or counseling patient: Coding Level of Care Code 65650 SUB INP/OBS CARE 3/50MIN Diagnoses Recurrent falls R29.6 Rhabdomyolysis M62.82 Hyperglycemia due to type 2 diabetes mellitus E11.65 Electrolyte abnormality E87.8
[2024-09-29] MEDS: LANTUS PER UNIT CHARGE SQ SCH (12:55)
--- NOTE | 2024-09-29 14:33 | Pharmacy Report ---
Pharmacy Glycemic Short Note 2 - Date of Service September 29, 2024 - Glycemic Short BSG Results (Last 24 hours): 09/28/24 09/28/24 09/28/24 14:29 14:32 14:34 Glucose POC Glucose 51 L* 78 59 L* 09/28/24 09/28/24 09/28/24 14:51 15:37 16:38 Glucose POC Glucose 76 88 64 L* 09/28/24 09/28/24 09/28/24 16:39 17:00 17:21 Glucose POC Glucose 63 L* 64 L* 95 09/28/24 09/28/24 09/28/24 18:28 19:32 20:35 Glucose POC Glucose 153 H 141 H 141 H 09/29/24 09/29/24 09/29/24 02:53 05:29 07:52 Glucose 96 POC Glucose 120 H 89 09/29/24 09/29/24 11:27 12:35 Glucose POC Glucose 163 H 165 H OUTPATIENT ANTIDIABETIC REGIMEN: * Glipizide * Metformin * Semaglutide A1c = 13.4% ASSESSMENT: * Otf is a 89 yo T2DM admitted 09/26/24 for PT/OT evaluations, correction of his acute hyperglycemia, and repletion of electrolyte abnormalities. Of note, patient reports missing semaglutide for a few days prior to admission due to prescription running out. Patient was initiated on SC basal + bolus insulin with improvement in BSGs and then subsequent hypoglycemia. Patient appears to be quite sensitive to insulin. * Pharmacy consulted on 09/28. Lantus held pending resolution of hypoglycemia. Fasting BSG of 89 mg/dL this AM. Lunch BSG of 163 mg/dL. Will resume conservative Lantus dose at this time. Will also add back conservative carb counting. PLAN FOR INPATIENT GLYCEMIC CONTROL: * Hold outpatient oral diabetes medications * Basal insulin * Lantus 5 units SC daily - started 09/29 with lunch * Bolus insulin * NovoLog per scale ACHS or Q6hrs while NPO * Goal Range: Low 110 mg/dL - High 160 mg/dL * Correction Factor: 40 mg/dL/unit * Nutritional / Prandial insulin per carb ratio of 1 unit per 15 grams CHO consumed
--- NOTE | 2024-09-29 14:41 | XRay Report ---
EXAMINATION: X-ray shoulder right minimum 2 view routine CLINICAL HISTORY: Right shoulder pain PRIORS: None TECHNIQUE: AP internal, external and Grashey view. Moderate osseous demineralization noted. [id number] degenerative change of the FINDINGS: Right glenohumeral joint. Humeral head is high riding. No acute fracture or dislocation. Moderate degenerative change of the acromioclavicular joint. No significant undersurface spurring. Subtle calcification present adjacent to the acromion laterally. A curved acromion is noted. Ribs and lungs within the [id number] are unremarkable. IMPRESSION: 1. Moderate osseous demineralization with [id number] degenerative change of the glenohumeral joint. 2. High riding humeral head favors underlying rotator cuff pathology. Electronically signed by Meagan Sadler 09-29-2024 2:38 PM
[2024-09-29 21:04] VITALS: TEMP 98.1
[2024-09-30] MEDS: ACETAMINOPHEN 325 MG TAB PO PRN (02:24)
[2024-09-30 07:28] VITALS: BP 130/76; RESP 16; O2SAT 91
--- NOTE | 2024-09-30 10:37 | Discharge Summary ---
Discharge Summary Date of Service September 30, 2024 Principal Dx & Hospital Course #1 = Principal Diagnosis (1) Recurrent falls: (2) Rhabdomyolysis: (3) Hyperglycemia due to type 2 diabetes mellitus: (4) Electrolyte abnormality: Ling Vanessa is a pleasant 89-year-old man with past medical history of stroke in 2023, hypertension, open heart surgery in 2000, GERD, vitamin D deficiency. He was found down on the ground by his grandson and reportedly has had multiple ground- level falls the past few days due to "weak legs giving out." No head strike, LOC, injuries. He was admitted for PT/OT evaluations, correction of his acute h yperglycemia, and repletion of electrolyte abnormalities. #Recurrent falls | Mild rhabdo Falls biomechanical secondary to generalized weakness. Mild rhabdoy secondary to being on ground for unknown period of time. s/p 2L IVF PT/OT consulted --> to go to [facility] on discharge. Right shoulder XR: high riding humeral head, favoring underlying rotator cuff pathology. If still having right arm pain will need MRI in ~6 weeks outpatient + sports medicine. - sports med referral sent on discharge. #Acute hyperglycemia | T2DM BG 447 on arrival. Outpatient regimen: Metformin, Glipizide, & Rybelsus A1c 13.4 % --> secondary to medication non-compliance, not resistant diabetes. Sensitive to insulin while here - recommend resuming outpatient PO regimen on dc & monitoring BG closely. Family was asking about continuous glucose monitor - defer to [facility] when able to be dc from there. #Electrolyte abnormality - Mild hypomagnesemia s/p IV + PO supplementation. #Renal insufficiency | Likely MARU due to dehydration, rhabdomyolysis Elevated @ time of admission BUN/Creat 33/2.07, unsure of baseline. Creat downtrending to 1.54 Continue to monitor outpatient. #History of stroke, ontinue Plavix 75 mg daily, aspirin 81 mg daily, atorvastatin 80 mg daily #Hypertensioncontinue atenolol 25 mg daily #GERDcontinue Protonix 40 mg daily, Pepcid 20 mg daily Updated family at bedside --> per family concern for "involuntary" moving right arm. Discussed w/ family it may be secondary to pain/discomfort vs component of hospital delirium. Discussed that if it is still ongoing after [facility] referral to neurology may be acceptable. Did offer to cancel dc & pursue further workup including repeat heat ct etc. but family did decline. They were concerned for stroke, initial head CT negative & he is on plavix outpatient. Discharged to [facility] 09/30. Admission HPI Per Admitting Provider Otf is a pleasant 89-year-old man with past medical history of stroke in 2023, open heart surgery in 2000, GERD, vitamin D deficiency. He presented from home with repeated falls and generalized weakness. At the time of my exam, the patient was lying in bed in no acute distress. Obtained most of the history via his grandchildren who are present at bedside. Khang states his mother is the primary caregiver for Otf and his who is in the other bed in the ED room. Patient's daughter is currently on vacation and neighbors have been checking on Otf and his intermittently. Khang was notified yesterday that Otf had a couple falls. Khang and his traveled from [place] to [place] today to check on Otf. When they arrived to their home, they found the patient on the ground. Otf denies any injuries from his falls. Denies head strike or loss of consciousness. He reports "my legs are weak and gave out. I only landed on my butt." Otf does use a walker at baseline. Khang reports that Otf ran out of his Rybelsus medication a few days ago. They picked up this prescription today and he took his dose. Otherwise, khang reports his pill packs showed that he has been taking his other medications appropriately. Patient agrees that he is taking his medications as prescribed. Vitals on admission are stable. Labs on admission are significant for sodium 128 (corrected to 137), BUN/creatinine 33/2.07, glucose 477, mag 1.5, CK 584, troponin 43.4 down trended to 40.7. No leukocytosis, no anemia, TSH WNL. Head CT on admission reveals cerebral atrophy, old basal ganglia infarct, chronic small vessel ischemic disease but no definite acute pathology. Sacrum and coccyx x-ray with no fracture, dislocation, or other osseous abnormalities. We discussed code status, patient wishes to be a full code. Discharge Exam Constitutional WD/WN, vitals as above Eyes PERRL, conjunctivae normal, anicteric sclerae Respiratory normal respiratory effort Cardiovascular no LE edema Neurologic PERRL, EOMI, accommodation nl, no face palsy, no dysarthria Psychiatric alert, appears pleasantly confused. Discharge Plan Discharge Items Patient Disposition: Transfer Inpatient Rehab Fac Reason For Visit: REPEAT FALLS,HYPERGLYCEMIA,MILD RHABDO Discharge Diagnosis: Fall, hyperglycemia Condition on Discharge: Fair Activity: Resume your previous activity Non-emergency contact: Primary Care Provider Call non-emergency contact if: you have any medication questions and your symptoms worsen Follow-up/Referrals: Edvin Frost [Primary Care Provider] - Diet: Carb Consistent or DM2 Addtl Attending Provider Instructions: Mr. Posey, You were recently hospitalized for recurrent falls. You were found to have high blood sugar as well at time of presentation to the ED. You are going to rehab to get stronger prior to returning home! Please continue your outpatient medications unless stated otherwise below. Please see your PCP within 1-2 weeks of discharge. You will be referred to sports medicine on discharge for further evaluation of your right arm pain. Best of luck! Gwendolyn Hung PA-C Pending Studies at Discharge: No Stand-Alone Forms: My [facility] Skilled Items Patient informed of condition?: Yes DNR: No Discharge Level of Care: Acute rehab Communicable Disease: No Discharge Prognosis: Stable Lines: None Urinary Catheter: No Medications and DC Order Prescriptions: Continued atenolol 25 mg tablet 25 mg PO DAILY famotidine 20 mg tablet 20 mg PO BID glipizide 5 mg tablet 2.5 mg PO BID Rybelsus 14 mg tablet 14 mg PO DAILY atorvastatin 80 mg tablet 80 mg PO HS clopidogrel 75 mg tablet 75 mg PO DAILY pantoprazole 40 mg tablet,delayed release (DR/EC) 40 mg PO DAILY PRN (Reason: Heartburn) ergocalciferol (vitamin D2) [Vitamin D2] 1,250 mcg (50,000 unit) capsule 1,250 mcg PO WK metformin 500 mg tablet 500 mg PO QID colesevelam 625 mg Tablet 625 mg PO BID [place]-3 Fish Oil 300-1,000 mg Capsule 1 cap PO DAILY Discharge Orders: Discharge Order (Routine); Ordered 09/30/24 Ordered By: Gwendolyn Hung Admission Data Admit Date/Time: 09/26/24 18:44 Attending Provider: Anand Whatley Admit Provider: Gerald Núñez Primary Care Provider: Edvin Frost Other Providers: Gerald Núñez; [facility] Hospital Stay Data Consultations 09/26/24 16:27 ED Decision to Admit Stat Diagnostic Imagining Performed 09/26/24 15:00 CT head/brain wo con Stat Pending Results Patient Have Any Pending Studies at Discharge: No Discharge Instructions Given to Patient (Per Discharging Provider) Mr. Posey, Tone were recently hospitalized for recurrent falls. You were found to have high blood sugar as well at time of presentation to the ED. You are going to rehab to get stronger prior to returning home! Please continue your outpatient medications unless stated otherwise below. Please see your PCP within 1-2 weeks of discharge. You will be referred to sports medicine on discharge for further evaluation of your right arm pain. Best of luck! Gwendolyn Hung PA-C Total Time Total Time Spent Total Time Spent (In Minutes): 60 Total Time Includes: Examination of the Patient, Discharge Planning and Medication Reconciliation Coding Level of Care Code 15206 INP/OBS DISCH >30 MIN Diagnoses Recurrent falls R29.6 Rhabdomyolysis M62.82 Hyperglycemia due to type 2 diabetes mellitus E11.65 Electrolyte abnormality E87.8
[2024-09-30 12:56] VITALS: PULSE 69
== END 2024-09-30 13:39 | DRG 558 ==
LOC: ED 12:49 → EDINP 18:44 → SUATTDRO 18:44 → 3N 19:53